=== PATIENT | male | born 1955 | race Caucasian/White ===

== ENCOUNTER 2017-09-17 08:07 | Inpatient (IN) | payer OTHER ==
[~2017-09-17] VITALS: Ht 172.7 cm; Wt 53.6 kg
--- NOTE | 2017-09-17 08:26 | ED HAND/WRIST INJURY COMPLAINT ---
See Addendum History of Present Illness General Chief Complaint: Hand or Wrist Injury Stated Complaint: SWOLLEN R HAND Source: patient Exam Limitations: no limitations Vital Signs & Intake/Output Vital Signs & Intake/Output Vital Signs Date Time Temp Pulse Resp B/P B/P Pulse O2 O2 Flow FiO2 Mean Ox Delivery Rate 09/17 0813 98.3 91 18 130/70 97 Allergies Coded Allergies: No Known Allergies (09/17/17) Triage Note: PT STATES HIS RIGHT HAND HAS BEEN SWOLLEN SINCE WEDNESDAY. PT STATES HE DOESNT REALY KNOW WHAT HAPPEND. Triage Nurses Notes Reviewed? yes Occurred: just prior to arrival Duration: day(s): (3), constant Pain/Injury Location: Right: Hand. No Modifying Factors: none HPI: 61-year-old male comes into emergency room with swelling to right hand. Patient is an employee here at [employer]. He reports that he's had swelling in the past 3 days pain. He thinks that he may have stabbed himself with a needle from the operating room this past Wednesday 3 days ago but is uncertain. He reports she's had swelling to the right hand with limited range of motion. Denies any fever chills body aches. Comes in for further evaluation. (Temo Schulz) Reconcile Medications Acetaminophen (Tylenol Extra Strength) 500 MG TABLET 2 TAB PO Q6 PRN pain . Bacitracin (Bacitracin Zinc) 500 UNIT/GRAM OINT...G. 1 NORMA TOP BID PRN cellulitis . Cephalexin 500 MG CAPSULE 500 MG PO Q6 INFECTION HAND . Cholecalciferol (Vitamin D3) 1,000 UNIT TABLET 1 TAB PO DAILY VITAMIN SUPPORT (Reported) Levothyroxine Sodium 100 MCG TABLET 1 TAB PO DAILY AC THYROID (Reported) (Olaf Jade DO) Past History Travel History Traveled to [place] past 21 day No Medical History Any Pertinent Medical History? see below for history Endocrine: hyperthyroidism Surgical History Surgical History: non-contributory Psychosocial History What is your primary language Citizen [place] Tobacco Use: Current Daily Use Daily Tobacco Use Amount/Type: => 5 Cigarettes daily ETOH Use: denies use Illicit Drug Use: denies illicit drug use Family History Hx Contributory? No (Temo Schulz) Review of Systems Review of Systems Constitutional: Reports: no symptoms. EENTM: Reports: no symptoms. Respiratory: Reports: no symptoms. Cardiovascular: Reports: no symptoms. GI: Reports: no symptoms. Genitourinary: Reports: no symptoms. Musculoskeletal: Reports: see HPI. Skin: Reports: see HPI. Neurological/Psychological: Reports: no symptoms. Hematologic/Endocrine: Reports: no symptoms. Immunologic/Allergic: Reports: no symptoms. All Other Systems: Reviewed and Negative (Temo Schulz) Physical Exam Physical Exam General Appearance: well developed/nourished, mild distress Head: atraumatic Eyes: Bilateral: normal appearance. Ears, Nose, Throat: normal ENT inspection, hearing grossly normal Neck: normal inspection Cardiovascular/Respiratory: no respiratory distress Back: normal inspection Hand Left: normal inspection Hand Right: swelling, tender, ERYTHEMA TO RIGHT HAND, LYMPHS DRINKING GOING UP ARM, RADIAL PULSE 2+, SOFT TISSUE SWELLING, LIMITED RANGE OF MOTION OF THE HAND, CAP REFILL INTACT,, SMALL AREA OF FLUCTUANCE IN HAND Neurologic/Tendon: normal sensation, normal motor functions, responds to pain, no evidence tendon injury, no pulse deficit Skin: intact, normal color, warm/dry (Temo Schulz) Progress Differential Diagnosis: abscess, cellulitis, contusion, fracture, septic arthritis, sprain Plan of Care: Orders Procedure Date/time Status Regular Diet 09/17 D Active ED Holding Orders 09/17 1103 Active Admit to inpatient 09/17 1103 Active Code Status 09/17 1103 Active BLOOD CULTURE 09/17 1023 Active EXTREMETIES CULTURE 09/17 1002 Active HIV EXPOSURE/NEEDLESTICK 09/17 0825 Complete HEPT C ANTIBODY 09/17 0825 Complete HEPT B SURFACE ANTIBODY 09/17 0825 Complete GAMMA GLUTAMYL TRANSFERASE 09/17 0825 Complete COMPREHENSIVE METABOLIC PANEL 09/17 0825 Complete CBC WITHOUT DIFFERENTIAL 09/17 0825 Complete TRNSFRASE ASPART AMINO 09/17 0825 Complete TRNSFRAS ALANINE AMINO 09/17 0825 Complete Current Medications Sig/Alexandre Start time Last Medication Dose Stop Time Status Admin Vancomycin HCl 1,000 MG ONCE ONE 09/17 1015 AC 09/17 Sodium Chloride 250 ML 09/17 1114 1050 (Normal Saline 0.9%) Laboratory Tests 09/17/17 0840: Anion Gap 10, Estimated GFR > 60, BUN/Creatinine Ratio 18.9, Glucose 120 H, Calcium 9.7, Total Bilirubin 1.0, GGT 38, AST 27, ALT 21, Alkaline Phosphatase 60, Total Protein 7.5, Albumin 4.3, Globulin 3.2, Albumin/Globulin Ratio 1.3, CBC w Diff NO MAN DIFF REQ, RBC 4.58 L, MCV 94.5 H, MCH 31.9 H, MCHC 33.8, RDW 14.4, MPV 7.7, Gran % 75.7 H, Lymphocytes % 13.1 L, Monocytes % 9.9 H, Eosinophils % 0.4, Basophils % 0.9, Absolute Granulocytes 8.7 H, Absolute Lymphocytes 1.5, Absolute Monocytes 1.1 H, Absolute Eosinophils 0, Absolute Basophils 0.1, Hep Bs Antibody REACTIVE, Hepatitis C Antibody NONREACTIVE, HIV 1 &2 Antibody NONREACTIVE Microbiology 09/17 1052 BLOOD: Blood Culture - RECD 09/17 1042 BLOOD: Blood Culture - RECD 09/17 1014 EXTREMITIE: Culture & Sensitivity - RECD 09/17 1014 EXTREMITIE: Gram Stain - RECD Diagnostic Imaging: Viewed by Me: Radiology Read. Discussed w/RAD: Radiology Read. Radiology Impression: PATIENT: MARTÍNEZ RANDLE PRESENT AGE: 61 PATIENT ACCOUNT NO: [id number] : 56 LOCATION: [facility] ORDERING PHYSICIAN: Temo FLOYD SERVICE DATE: 09/17/17 EXAM TYPE : RAD - XRY-HAND TWO VIEWS R EXAMINATION: XR HAND, RIGHT CLINICAL INFORMATION: Soft tissue foreign body, right hand swelling middle upon. May have stuck with needle at work. COMPARISON: None TECHNIQUE: 2 views of the right hand. FINDINGS: No radiodense foreign body is demonstrated. Soft tissue swelling about the hand. No acute fracture or dislocation. No periosteal reaction. The carpal arcs are maintained. Minimal hypertrophic changes involving DIP joints. IMPRESSION: Nonspecific soft tissue swelling about the hand. No radiodense foreign body demonstrated. DICTATED BY: Darrian Finn MD DATE/TIME DICTATED:09/17/17856 FIELD MECHANIC:WILIAM DATE/TIME TRANSCRIBED:09/17/17856 CONFIDENTIAL, DO NOT COPY WITHOUT APPROPRIATE AUTHORIZATION. <Electronically signed in Other Vendor System> SIGNED BY: Darrian Finn MD 09/17/17 09 (Temo Schulz) Departure Departure Disposition: STILL A PATIENT Condition: Stable Clinical Impression Primary Impression: Cellulitis and abscess of hand Referrals: Burke John DO (PCP/Family) Departure Forms: Customer Survey General Discharge Information Admission Note Spoke With: Levar Mota MD Documentation of Exam: Documentation of any treatments & extenuating circumstances including Concerns Regarding Discharge (functional status, medication knowledge or non-compliance, living conditions, etc.) that warrant an admission rather than observation: Patient will require IV antibiotics. Warm compresses. Repeat labs. Infectious disease consultation. Concern for compliance issues.Plastic surgery consultation. (Temo Schulz) Departure Prescriptions: Current Visit Scripts Cephalexin 500 MG PO Q6 #25 CAP . Acetaminophen (Tylenol Extra Strength) 2 TAB PO Q6 PRN pain #20 TAB . Bacitracin (Bacitracin Zinc) 1 NORMA TOP BID PRN cellulitis #1 TUBE . PA/FORENSIC ANTHROPOLOGIST Co-Sign Statement Statement: ED Attending supervision documentation- [X] I saw and evaluated the patient. I have also reviewed all the pertinent lab results and diagnostic results. I agree with the findings and the plan of care as documented in the PA's/FORENSIC ANTHROPOLOGIST's documentation. [] I have reviewed the ED Record and agree with the PA's/FORENSIC ANTHROPOLOGIST's documentation. [] Additions or exceptions (if any) to the PAs/FORENSIC ANTHROPOLOGIST's note and plan are summarized below: [] (Olaf Jade DO)
[2017-09-17 08:56] LABS: ABSOLUTE BASOPHIL COUNT 0.1 /CUMM (0.0-0.2); ABSOLUTE EOSINOPHIL COUNT 0 /CUMM (0.0-0.7); ABSOLUTE GRANULOCYTE CT 8.7 /CUMM (1.4-6.5); ABSOLUTE LYMPH COUNT 1.5 /CUMM (1.2-3.4); ABSOLUTE MONOCYTE COUNT 1.1 /CUMM (0.10-0.60); BASOPHIL % 0.9 % (0.0-2.0); EOSINOPHIL % 0.4 % (0-5); HEMATOCRIT 43.3 % (42-52); MEAN CORPUSCULAR HGB 31.9 PG (27.0-31.0); MEAN CORPUSCULAR HGB CONC 33.8 G/DL (33.0-37.0); MEAN CORPUSCULAR VOLUME 94.5 FL (80.0-94.0); MEAN PLATELET VOLUME 7.7 FL (7.4-10.4); PLATELET COUNT 207 /CUMM (130-400); RBC DISTRIBUTION WIDTH 14.4 % (11.5-14.5); RED BLOOD CELL CT 4.58 /CUMM (4.70-6.10); WHITE BLOOD CELL COUNT 11.5 /CUMM (4.8-10.8)
[2017-09-17 08:57] LABS: GRANULOCYTE % 75.7 % (42.2-75.2)
--- NOTE | 2017-09-17 09:02 | RADIOLOGY REPORT ---
EXAMINATION: XR HAND, RIGHT CLINICAL INFORMATION: Soft tissue foreign body, right hand swelling middle upon. May have stuck with needle at work. COMPARISON: None TECHNIQUE: 2 views of the right hand. FINDINGS: No radiodense foreign body is demonstrated. Soft tissue swelling about the hand. No acute fracture or dislocation. No periosteal reaction. The carpal arcs are maintained. Minimal hypertrophic changes involving DIP joints. IMPRESSION: Nonspecific soft tissue swelling about the hand. No radiodense foreign body demonstrated.
[2017-09-17] MEDS ORDERED: VITAMIN D31000 UNI2 PO (09:48)
[2017-09-17] MEDS ORDERED: LEVOTHYROXINE100 MC1 PO (09:48)
[2017-09-17] MEDS ORDERED: BACTRIM DS TAB1 EACH PO (10:04)
--- NOTE | 2017-09-17 11:26 | History & Physical ---
Corky BADILLO,[facility] 09/17/17 1121: General Information and HPI MD Statement: I have seen and personally examined MARTÍNEZ RODRÍGUEZ and documented this H&P. The patient is a 61 year old M who presented with a patient stated chief complaint of right hand injury. Source of Information: patient, friend Exam Limitations: poor historian History of Present Illness: Mr Rodríguez is a pleasant 61 year old gentleman with a past medical history of hypothyroidism who presented to the emergency department on 09/17/2017 complaining of a right hand injury. Patient is a poor historian and some of the clinical history was obtained from the patient's coworker. Patient developed right hand injury on Wednesday09/15/2017. The patient states that this injury was the result of one of 2 traumatic injuries although is unsure which may have caused his injury). He states that he may have been exposed to a sharp object from a plastic bag as he was removing items from the surgical suite or states that he may have encountered this injury as a result of accident which happened at his home involving a market risk specialist knife. At the time of our clinical interaction the patient appeared to be in mild distress and endorsde some right upper extremity pain. He denies any paresthesias or loss of sensation. At the time of presentation at the emergency department the wound on his right palmar aspect of his hand was incised and drained with approximately 4 mL of purulent material being aspirated and sent for culture. Patient does have a dog at home although still did not endorse any local bite or trauma. Patient's primary care physician is Dr. John although has not seen him for many years. He reports good medication compliance. He denied any fever, chills, nausea, vomiting. He was unable to articulate the level of pain was feeling although appeared to be in some distress. Allergies/Medications Allergies: Coded Allergies: No Known Allergies (09/17/17) Home Med list Cholecalciferol (Vitamin D3) 1,000 UNIT TABLET 1 TAB PO DAILY VITAMIN SUPPORT (Reported) Levothyroxine Sodium 100 MCG TABLET 1 TAB PO DAILY AC THYROID (Reported) Sulfamethoxazole/Trimethoprim (Bactrim Ds Tablet) 800 MG-160 MG TABLET 1 TAB PO BID cellulitis/abscess Compliance With Home Meds: UNKNOWN Past History Travel History Traveled to [place] past 21 day No Medical History Endocrine: hyperthyroidism Surgical History Surgical History: non-contributory Past Family/Social History Psychosocial History Where do you live? Other ([place] ) Who Do You Live With? spouse Services at Home: None Primary Language: Greek Smoking Status: Current Some Day Smoker ETOH Use: denies use Illicit Drug Use: denies illicit drug use Functional Ability ADLs Independent: dressing, eating, toileting, bathing. Ambulation: independent IADLs Independent: shopping, housework, finances, food prep, telephone, transportation , medication admin. Review of Systems Review of Systems Constitutional: Reports: see HPI. Exam & Diagnostic Data Last 24 Hrs of Vital Signs/I&O Vital Signs Date Time Temp Pulse Resp B/P B/P Pulse O2 O2 Flow FiO2 Mean Ox Delivery Rate 09/17 0813 98.3 91 18 130/70 97 Intake & Output 09/17 1600 09/17 0800 09/17 0000 Intake Total Output Total Balance Patient 52.163 kg Weight Weight Reported by Patient Measurement Method Physical Exam General Appearance Alert, Oriented X3, Mild Distress HEENT Mucous membranes Dry Lungs Clear to Auscultation, Normal Air Movement Abdomen Normal Bowel Sounds, Soft, No Tenderness Neurological Sensation Intact, Cranial Nerves 3-12 NL Extremities No Clubbing (Right palmar aspect s/p I & D.), No Cyanosis, Erythema extending up to the wrist. Significan swelling noted. Range of motion decreased. All sensation intact. Pulses WNL Vascular Normal Pulses Body Front and Back (Adult) 1) S/p I&D Significan erythema and edema noted to the level of the wrists. 2 Cm laceration noted on Palmar aspect. Last 24 Hrs of Labs/Ihsan: Laboratory Tests 09/17/17 0840: Anion Gap 10, Estimated GFR > 60, BUN/Creatinine Ratio 18.9, Glucose 120 H, Hemoglobin A1c 6.0 H, Calcium 9.7, Total Bilirubin 1.0, GGT 38, AST 27, ALT 21, Alkaline Phosphatase 60, Total Protein 7.5, Albumin 4.3, Globulin 3.2, Albumin/ Globulin Ratio 1.3, CBC w Diff NO MAN DIFF REQ, RBC 4.58 L, MCV 94.5 H, MCH 31.9 H, MCHC 33.8, RDW 14.4, MPV 7.7, Gran % 75.7 H, Lymphocytes % 13.1 L, Monocytes % 9.9 H, Eosinophils % 0.4, Basophils % 0.9, Absolute Granulocytes 8.7 H, Absolute Lymphocytes 1.5, Absolute Monocytes 1.1 H, Absolute Eosinophils 0, Absolute Basophils 0.1, Hep Bs Antibody REACTIVE, Hepatitis C Antibody NONREACTIVE, HIV 1&2 Antibody NONREACTIVE Microbiology 09/17 1052 BLOOD: Blood Culture - RECD 09/17 1042 BLOOD: Blood Culture - RECD 09/17 1014 EXTREMITIE: Culture & Sensitivity - RECD 09/17 1014 EXTREMITIE: Gram Stain - RECD Diagnostic Data Other Results SERVICE DATE: 09/17/17 EXAM TYPE: RAD - XRY-HAND TWO VIEWS R EXAMINATION: XR HAND, RIGHT CLINICAL INFORMATION: Soft tissue foreign body, right hand swelling middle upon. May have stuck with needle at work. COMPARISON: None TECHNIQUE: 2 views of the right hand. FINDINGS: No radiodense foreign body is demonstrated. Soft tissue swelling about the hand. No acute fracture or dislocation. No periosteal reaction. The carpal arcs are maintained. Minimal hypertrophic changes involving DIP joints. IMPRESSION: Nonspecific soft tissue swelling about the hand. No radiodense foreign body demonstrated. Assessment/Plan Assessment: Mr Rodríguez is a pleasant 61 year old gentleman with a past medical history of hypothyroidism who presented to the emergency department on 09/17/2017 complaining of a right hand injury. In the emergency department blood cultures 2 were drawn and the patient was given IV vancomycin 1 g. An x-ray of the hand was also performed. His injury is concerning especially given its location. Owing to the presence of purulent material will need to cover for MRSA.Given the fact that the injury may have happened as a result of a workplace injury would be prudent to rule out hepatitis and HIV. Cellulitis of the right upper extremity History of Hypothyroidism Will admit the patient to the Gen. medical service. Continue antibiotic with MRSA coverage. Continue vancomycin for now. MRI of right hand to rule out an abcess/ acute pathology. If patient's symptoms improve in 48 hours, may consider Bactrim or doxycycline once sensitivities are back. Follow-up on wound cultures. Obtain formal infectious disease and plastics consultation. Elevate arm and apply warm compresses. Query Tetanus booster. Pain control with Percocet, IV Acetaminophen and NSAIDs Continue levothyroxine in a.m. Smoking cessation counseling. Repeat CBC and BEP in a.m. Regular diet. DVT prophylaxis with Lovenox. Patient is a full code. As Ranked By This Provider Problem List: 1. Cellulitis and abscess of hand Core Measures/Misc (12/06) Sepsis (View protocol) If YES complete Sepsis Event Note If YES complete Sepsis Event Note Braeden Reyes MD 09/17/17 1524: Core Measures/Misc (12/06) Acute Coronary Syndrome ACS Diagnosis: No Congestive Heart Failure Congestive Heart Failure Diagnosis No Cerebrovascular Accident CVA/TIA Diagnosis: No VTE (View Protocol) VTE Risk Factors Age>40 No Mechanical VTE Prophylaxis d/t N/A MechProphylax Ordered No VTE Pharm Prophylaxis d/t LowRisk-No Interven Req'd Sepsis (View protocol) Sepsis Present: No If YES complete Sepsis Event Note If YES complete Sepsis Event Note Attending MD Review Statement Attending Statement Attending MD Statement: examined this patient, discuss w/resident/PA/COMMUNICATIONS MANAGER, agreed w/resident/PA/COMMUNICATIONS MANAGER, reviewed EMR data (avail), reviewed images, amended to note Attending Assessment/Plan: The patient is a 61 yo male with 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 He is vague about having an injury, although may have cut the palm of the hand on a sharp object when picking trash out of a container (of could have happened at home). He denied any fever/chills. Today noted some spread of infection up forearm and a co-worker brought him the the ED. His grain processor is Dr. John. [place] chart indicates only problem is hypothyroidism (sees Dr. Tristan) since 2008. He has a low-normal IQ as per Endocrinology chart. Physical Exam: VS: T 98.3, P 91, R 18, BP 130/70, PO 97% RA HEENT: eyes- PERRLA, EOMI debra- no lesions Neck: no adenopathy, thyroid slightly spongy Chest: clear Cor: RRR nl S1, S2 w/o murm Abd: BS+, soft, NT, - HSM Ext: + diffuse edema of right hand- has small incision in mid right palm (ED did I&D with purulent drainage), + tender and warm with some extension up right forearm, - no axillary nodes palpable; LE w/o edema, pulses 2+ Neuro: alert & oriented x 3, non-focal exam Labs/Tests- as above Impression/Plan: #Right Hand Cellulitis- purulent. 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 He is a vague historian and has had symptoms x 2 days. Concern regarding MSSA, strep, MRSA with some purulent drainage. I & D done in ED. Does have leukocytosis with WBC 15K. Plan: Admit to general medical service. Garvey culture- blood, sample sent from ED. IV Vancomycin begun in ED. ID consult. Plastic surgery consult. MRI of right hand. Elevate RUE. Check hepatitis panel and HIV (concern regarding hospital sharps). 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 Clinically euthyroid on Levothyroxine. Plan: Continue Levothyroxine.
--- NOTE | 2017-09-17 14:49 | Cons- Infect Disease ---
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 On admission he was afebrile. Laboratory data revealed a white blood cell count of 11.5, BUN/ creatinine 17 and 0.9, with normal liver enzymes. An x-ray of his right hand revealed soft tissue swelling with no periosteal reaction and with no radiodense foreign body noted. He underwent an I&D of a fluctuant area in the palm in the ER, with 4 cc of purulent material obtained. He was begun on Vancomycin and has undergone an MRI, with the results pending. At present he does not report any significant pain in the hand. Allergies/Medications Allergies: Coded Allergies: No Known Allergies (09/17/17) Home Med List: Cholecalciferol (Vitamin D3) 1,000 UNIT TABLET 1 TAB PO DAILY VITAMIN SUPPORT (Reported) Levothyroxine Sodium 100 MCG TABLET 1 TAB PO DAILY AC THYROID (Reported) Sulfamethoxazole/Trimethoprim (Bactrim Ds Tablet) 800 MG-160 MG TABLET 1 TAB PO BID cellulitis/abscess Past History Travel History Traveled to [place] past 21 day No Medical History Blood Transfusion Hx: No Neurological: NONE EENT: NONE Cardiovascular: NONE Respiratory: NONE Gastrointestinal: NONE Hepatic: NONE Renal: NONE Musculoskeletal: NONE Psychiatric: NONE Endocrine: hypothyroidism Blood Disorders: NONE Cancer(s): NONE Isolation History: Standard Surgical History Surgical History: NONE Psychosocial History Where Do You Live? Home ([place] ) Who Do You Live With? spouse Services at Home: None Primary Language: Yemeni Smoking Status: Current Some Day Smoker ETOH Use: denies use Illicit Drug Use: denies illicit drug use Functional Ability ADLs Independent: dressing, eating, toileting, bathing. Ambulation: independent IADLs Independent: shopping, housework, finances, food prep, telephone, transportation , medication admin. Review of Systems Review of Systems All Other Systems: Reviewed and Negative Exam & Diagnostic Data Last 24 Hrs of Vital Signs/I&O Vital Signs Date Time Temp Pulse Resp B/P B/P Pulse O2 O2 Flow FiO2 Mean Ox Delivery Rate 09/17 1205 98.3 95 18 156/82 96 Room Air Room Air 09/17 1155 98.3 09/17 0813 98.3 91 18 130/70 97 Intake & Output 09/17 1600 09/17 0800 09/17 0000 Intake Total 500 Output Total Balance 500 Intake, Oral 500 Patient 115 lb Weight Weight Reported by Patient Measurement Method Physical Exam Other Physical Findings: He is awake and alert in no acute distress. He is afebrile. Skin reveals no rash. HEENT exam is negative. Neck is supple with no adenopathy. Lungs are clear. Heart regular rhythm with no murmur. Abdomen is soft, nontender with positive bowel sounds. Back no CVA tenderness. Extremities right hand swelling over the dorsum and plantar aspects, warm to touch, with minimal erythema; wound in the plantar aspect, mildly tender on palpation, with no active drainage; no cyanosis, clubbing or edema of the lower extremities. Neuro is without focality. Last 24 Hours of Lab Results: Laboratory Tests 09/17 0840 Chemistry Sodium (137 - 145 mmol/L) 140 Potassium (3.5 - 5.1 mmol/L) 4.4 Chloride (98 - 107 mmol/L) 103 Carbon Dioxide (22 - 30 mmol/L) 27 Anion Gap (5 - 16) 10 BUN (9 - 20 mg/dL) 17 Creatinine (0.7 - 1.2 mg/dL) 0.9 Estimated GFR (>60 ml/min) > 60 BUN/Creatinine Ratio (7 - 25 %) 18.9 Glucose (65 - 99 mg/dL) 120 H Hemoglobin A1c (4.2 - 5.8 %) 6.0 H Calcium (8.4 - 10.2 mg/dL) 9.7 Total Bilirubin (0.2 - 1.3 mg/dL) 1.0 GGT (15 - 73 U/L) 38 AST (17 - 59 U/L) 27 ALT (21 - 72 U/L) 21 Alkaline Phosphatase (< 127 U/L) 60 Total Protein (6.3 - 8.2 g/dL) 7.5 Albumin (3.5 - 5.0 g/dL) 4.3 Globulin (1.9 - 4.2 gm/dL) 3.2 Albumin/Globulin Ratio (1.1 - 2.2 %) 1.3 Hematology CBC w Diff NO MAN DIFF REQ WBC (4.8 - 10.8 /CUMM) 11.5 H RBC (4.70 - 6.10 /CUMM) 4.58 L Hgb (14.0 - 18.0 G/DL) 14.6 Hct (42 - 52 %) 43.3 MCV (80.0 - 94.0 FL) 94.5 H MCH (27.0 - 31.0 PG) 31.9 H MCHC (33.0 - 37.0 G/DL) 33.8 RDW (11.5 - 14.5 %) 14.4 Plt Count (130 - 400 /CUMM) 207 MPV (7.4 - 10.4 FL) 7.7 Gran % (42.2 - 75.2 %) 75.7 H Lymphocytes % (20.5 - 51.1 %) 13.1 L Monocytes % (1.7 - 9.3 %) 9.9 H Eosinophils % (0 - 5 %) 0.4 Basophils % (0.0 - 2.0 %) 0.9 Absolute Granulocytes (1.4 - 6.5 /CUMM) 8.7 H Absolute Lymphocytes (1.2 - 3.4 /CUMM) 1.5 Absolute Monocytes (0.10 - 0.60 /CUMM) 1.1 H Absolute Eosinophils (0.0 - 0.7 /CUMM) 0 Absolute Basophils (0.0 - 0.2 /CUMM) 0.1 Serology Hep Bs Antibody (NONREACTIVE) REACTIVE Hepatitis C Antibody (NONREACTIVE) NONREACTIVE HIV 1&2 Antibody (NONREACTIVE) NONREACTIVE Last 24 Hours of Ihsan Results: Blood cultures 2 pending Right hand culture pending Diagnostic Data Recent Imaging Findings: X-ray of his right hand revealed soft tissue swelling with no periosteal reaction and with no radiodense foreign body noted. 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 He appears to have a purulent cellulitis of the volar aspect of the right hand. The etiology of this is unclear, with no definite history of trauma. The extent of this infection is unclear and he has undergone an MRI, which should help in determining this. Plastic/hand surgery evaluation would also be helpful to rule out the need for further drainage/debridement. He has been started on Vancomycin, which can be continued pending culture results. Suggestion: 1. Follow-up MRI 2. Plastic/hand surgery evaluation 3. Elevation/warm compresses to the right hand 4. Follow-up culture from the recent I&D 5. Continue Vancomycin 1 g IV every 24 hour pending above Consult Acknowledgment - Thank you for your consult request.
[2017-09-17 14:50] VITALS: BP 130/82
--- NOTE | 2017-09-17 14:53 | Cons- Plastic Surgery ---
General Information and HPI Consulting Request Date of Consult: 09/17/17 Requested By: Braeden Reyes MD Reason for Consult: abscess right hand Source of Information: patient (er) Exam Limitations: poor historian History of Present Illness: Patient is right hand dominant male who was unsure of an acute injury a few days ago but noticed the onset of pain and swelling of the right palm. Attendant took him to the emergency room for evaluation. He complains of discomfort in the right hand. He was found to be afebrile with a white count of 11,000 upon admission. 4 mL of purulent drainage was reportedly drained in the emergency room. Allergies/Medications Allergies: Coded Allergies: No Known Allergies (09/17/17) Home Med List: Cholecalciferol (Vitamin D3) 1,000 UNIT TABLET 1 TAB PO DAILY VITAMIN SUPPORT (Reported) Levothyroxine Sodium 100 MCG TABLET 1 TAB PO DAILY AC THYROID (Reported) Sulfamethoxazole/Trimethoprim (Bactrim Ds Tablet) 800 MG-160 MG TABLET 1 TAB PO BID cellulitis/abscess Past History Medical History Blood Transfusion Hx: No Neurological: NONE EENT: NONE Cardiovascular: NONE Respiratory: NONE Gastrointestinal: NONE Hepatic: NONE Renal: NONE Musculoskeletal: NONE Psychiatric: NONE Endocrine: hypothyroidism Blood Disorders: NONE Cancer(s): NONE Surgical History Pertinent Surgical History: NONE Psychosocial History Where Do You Live? Home ([place] ) Who Do You Live With? spouse Services at Home: None Primary Language: Czech Smoking Status: Current Some Day Smoker ETOH Use: denies use Illicit Drug Use: denies illicit drug use Functional Ability ADLs Independent: dressing, eating, toileting, bathing. Ambulation: independent IADLs Independent: shopping, housework, finances, food prep, telephone, transportation , medication admin. Review of Systems Review of Systems: All other systems negative Exam & Diagnostic Data Vital Signs and I&O Vital Signs Date Time Temp Pulse Resp B/P B/P Pulse O2 O2 Flow FiO2 Mean Ox Delivery Rate 09/17 1205 98.3 95 18 156/82 96 Room Air Room Air 09/17 1155 98.3 09/17 0813 98.3 91 18 130/70 97 Intake & Output 09/17 1600 09/17 0800 09/17 0000 09/16 1600 09/16 0800 09/16 0000 Intake Total 500 Output Total Balance 500 Intake, Oral 500 Patient 115 lb Weight Weight Reported by Patient Measurement Method Physical Exam: Right hand shows flexed position of the fingers but soft. There is an opened longitudinal full thickness incision in the mid palm without surrounding cellulitis or active drainage. Dorsum has some mild edema without fluctuance nor cellulitis. no significant lymphangitic streaking. no Pain with passive extension of digits. Assessment/Plan Assessment/Plan Abscess right hand status post drainage. Continue antibiotics until culture report is returned. soap and water on a daily or twice daily basis covering the wound with gauze pad and bacitracin. Consider an OT PT eval for extension splinting of the hand or safe position splinting of the hand. In the interim and it might be sufficient is to loosely Abiodun wrap the patient's hand and digits to an IV board to be In extension ie, fingers straight with palm, "stop" position. This is to prevent flexion contracture since he is holding his fingers in a flexed posture. Consult Acknowledgment - Thank you for your consult request.
--- NOTE | 2017-09-17 15:42 | PN- Plastic Surgery ---
Surgical Brief Attending Note Brief Attending Note: aspirated dorsal 3rd mcp region based on question of collection on mri. negative for purulence.
--- NOTE | 2017-09-17 16:06 | MRI REPORT ---
EXAMINATION: MRI HAND WITHOUT/WITH CONTRAST, RIGHT CLINICAL INFORMATION: 61-year-old male with purulent drainage. Treated for cellulitis. Recent hand trauma/puncture wound. COMPARISON: Radiographs of the hand from 09/17/2017 TECHNIQUE: MR imaging of the right hand was performed on a high-field 1.5 Lenore magnet. Multiplanar T1-weighted, coronal STIR, coronal T2-weighted, axial fat-suppressed VIBE, and postcontrast fat-suppressed axial T1-weighted spin-echo and VIBE images were obtained. Contrast type and dose: 5 mL of Gadavist given intravenously. FINDINGS: Diffuse edema of subcutaneous tissues of the hand. There is a reticulated appearance of subcutaneous tissue enhancement after contrast administration, consistent with cellulitis. An irregular nonenhancing area within subcutaneous tissues volar to the flexor tendons at the level of the distal 2nd and 3rd metacarpals measures 1.4 cm transverse, 1.4 cm long and 0.8 cm AP; this is consistent with a superficial abscess, status post drainage, as manifest by thin focus of extension to the skin surface. On the axial postcontrast images, a 0.9 x 0.7 x 2 cm area of relative hypoenhancement is seen in subcutaneous tissues dorsal to the third metacarpophalangeal joint -- possibly another location of early abscess formation; however, there is no well-defined walled off fluid. Recommend correlation with findings on physical examination dorsal to the third knuckle. Flexor and extensor tendons are intact. There are no tenosynovial fluid collections. No intramuscular abscess. The triangular fibrocartilage complex, lunatotriquetral ligament and scapholunate ligament are grossly intact. There is a type 2 lunate with apparent articular cartilage loss and subarticular marrow edema at the hamatolunate articulation. Mild osteoarthrosis of the first carpometacarpal joint. Minimal subcortical cystic change in the posteromedial aspect of the 5th metacarpal head. No evidence of osseous erosion or synovitis at the MCP or IP joints. No osteomyelitis. IMPRESSION: - Diffuse cellulitis of the right hand. - Irregular, 1.4 x 1.4 x 0.8 cm peripherally enhancing focus in subcutaneous tissues of the palm extending to the skin surface is compatible with a draining superficial abscess. - At the 3rd knuckle, there is a region of relative hypoenhancement which could represent early abscess formation. However, no discrete, walled off collection in this area. Recommend correlation with the physical examination findings. - No evidence of osteomyelitis in the hand or wrist.
--- NOTE | 2017-09-17 16:15 | Admission Certification ---
Admission Certification Certification Statement - As attending physician, I certify that at the time of - admission, based on clinical presentation, severity of - symptoms, need for further diagnostic testing and - therapeutic interventions, and risk of adverse outcomes - without in-hospital treatment, in my clinical assessment, - this patient requires an acute hospital stay for a minimum - of two nights or longer. I have also considered psychsocial - factors such as support system, advanced age, financial - issues, cognitive issues, and failed out-patient treatments, - past re-admission history, safety of patient, and lack of - compliance as applicable. Specific rationale supporting this admission is: Patient presents with right hand cellulitis with lymphangitic spread after ? sharp injury to palm of hand. Has leukocytosis and signfiicant swelling. Needs admission for IV antibiotics (Vanco), ID consult, MRI of hand, and Plastic Surgery consult.
[2017-09-17 22:19] VITALS: BP 112/60
--- NOTE | 2017-09-18 04:07 | PN- Housestaff ---
See Addendum Subjective Follow-up For: Cellulitis of the right extremity. Subjective: Mr Rodríguez was seen and examined this morning. He is resting comfortably in bed. States that he was able to get some rest. States pain in right upper extremity has improved. He also states hand appears less swollen. He has been tolerating by mouth intake well. Denies any fever, chills, nausea, vomiting. Review of Systems Constitutional: Reports: see HPI. Objective Last 24 Hrs of Vital Signs/I&O Vital Signs Date Time Temp Pulse Resp B/P B/P Pulse O2 O2 Flow FiO2 Mean Ox Delivery Rate 09/18 0627 98.0 82 16 114/70 97 Room Air 09/17 2219 98.7 85 20 112/60 96 Room Air 09/17 1450 97.7 79 20 130/82 96 Room Air 09/17 1205 98.3 95 18 156/82 96 Room Air Room Air 09/17 1155 98.3 Intake & Output 09/18 1600 09/18 0800 09/18 0000 Intake Total 360 360 Output Total Balance 360 360 Intake, Oral 360 360 Patient 53.581 kg Weight Weight Bed scale Measurement Method Physical Exam General Appearance: Alert, Oriented X3, Cooperative Cardiovascular: Regular Rate, Normal S1, Normal S2 Lungs: Clear to Auscultation Abdomen: Normal Bowel Sounds, Soft, No Tenderness Neurological: Normal Speech, Sensation Intact, Cranial Nerves 3-12 NL Extremities: Hand wrapped in Gauze and Abiodun. Right hand swelling and erythema noted, improved compared to admission. No active drainage from laceration. Hand is warm to touch with pulses present. 3rd MCP region has hemostasis at site or bedside aspiration. Orders Miscellaneous Findings: EXAM TYPE: MRI - MRI-RT HAND W/O & W IVONNE IMPRESSION: - Diffuse cellulitis of the right hand. - Irregular, 1.4 x 1.4 x 0.8 cm peripherally enhancing focus in subcutaneous tissues of the palm extending to the skin surface is compatible with a draining superficial abscess. - At the 3rd knuckle, there is a region of relative hypoenhancement which could represent early abscess formation. However, no discrete, walled off collection in this area. Recommend correlation with the physical examination findings. - No evidence of osteomyelitis in the hand or wrist. Assessment/Plan Assessment: Mr Rodríguez is a pleasant 61 year old gentleman with a past medical history of hypothyroidism who presented to the emergency department on 09/17/2017 complaining of a right hand injury. In the emergency department blood cultures 2 were drawn and the patient was given IV vancomycin 1 g. An x-ray of the hand was also performed. His injury is concerning especially given its location. Owing to the presence of purulent material will need to cover for MRSA.Given the fact that the injury may have happened as a result of a workplace injury would be prudent to rule out hepatitis and HIV. An MRI was done on 09/17/2017 showed no evidence of osteomyelitis however did suggest a potential superficial abscess on the subcutaneous tissue of the palm. #Cellulitis of the right upper extremity #History of Hypothyroidism Continue on the Gen. medical service. Continue vancomycin for now. Follow-up on wound cultures. If patient's symptoms improve in 48 hours, may consider Bactrim or doxycycline once sensitivities are back. ID and plastics on board. Elevate arm and apply warm compresses. Query Tetanus booster. Pain control with Percocet, IV Acetaminophen and NSAIDs Continue levothyroxine in a.m. Smoking cessation counseling. Repeat CBC in a.m. Regular diet. DVT prophylaxis with Lovenox. Patient is a full code. Problem List: 1. Cellulitis and abscess of hand Pain Ratin Pain Location: Right hand Pain Goal: Remain pain free Pain Plan: Tylenol and percocet Tomorrow's Labs & Rationales: CBC: Monitor White count
[2017-09-18 06:27] VITALS: BP 114/70
[2017-09-18 08:56] LABS: ABSOLUTE BASOPHIL COUNT 0 /CUMM (0.0-0.2); ABSOLUTE EOSINOPHIL COUNT 0.2 /CUMM (0.0-0.7); ABSOLUTE GRANULOCYTE CT 5.2 /CUMM (1.4-6.5); ABSOLUTE MONOCYTE COUNT 0.9 /CUMM (0.10-0.60); BASOPHIL % 0.5 % (0.0-2.0); EOSINOPHIL % 2.7 % (0-5); GRANULOCYTE % 61.6 % (42.2-75.2); HEMATOCRIT 43.2 % (42-52); MEAN CORPUSCULAR HGB 31.5 PG (27.0-31.0); MEAN CORPUSCULAR HGB CONC 33.2 G/DL (33.0-37.0); MEAN CORPUSCULAR VOLUME 94.8 FL (80.0-94.0); MEAN PLATELET VOLUME 8.1 FL (7.4-10.4); RBC DISTRIBUTION WIDTH 14.5 % (11.5-14.5); RED BLOOD CELL CT 4.55 /CUMM (4.70-6.10); WHITE BLOOD CELL COUNT 8.4 /CUMM (4.8-10.8)
--- NOTE | 2017-09-18 12:57 | PN- Infect Dx ---
Subjective Subjective: This patient is a 61-year-old man with a history of hypothyroidism, admitted after he was sent to the emergency room because of a 2 day history of right hand pain and swelling, associated with chills, with no clear history of trauma. He underwent an I&D of a fluctuant area in the palm in the ER, with 4 cc of purulent material obtained. He was begun on Vancomycin and has undergone an MRI , which demonstrated Diffuse cellulitis of the right hand, Irregular, 1.4 x 1.4 x 0.8 cm peripherally enhancing focus in subcutaneous tissues of the palm extending to the skin surface is compatible with a draining superficial abscess. No evidence of osteomyelitis in the hand or wrist. Currently he feels well with no fever or elevated white blood cell count. Review of Systems Comments: 12 point review of systems as documented above Objective Last 24 Hrs of Vital Signs/I&O Vital Signs Date Time Temp Pulse Resp B/P B/P Pulse O2 O2 Flow FiO2 Mean Ox Delivery Rate 09/18 0627 98.0 82 16 114/70 97 Room Air 09/17 2219 98.7 85 20 112/60 96 Room Air 09/17 1450 97.7 79 20 130/82 96 Room Air Intake & Output 09/18 1600 09/18 0800 09/18 0000 Intake Total 360 360 Output Total Balance 360 360 Intake, Oral 360 360 Patient 118 lb Weight Weight Bed scale Measurement Method Physical Exam Other Physical Findings: Awake alert oriented 3 baseline behavior Neck supple no JVD lymphadenopathy Lungs are clear to auscultation bilaterally Heart is regular rate and rhythm S1-S2 Abdomen is soft nontender nondistended Distal extremities show no edema Right hand and wrist clean dry and wrapped. Results Last 24 Hours of Lab Results: Laboratory Tests 09/18 0724 Chemistry Sodium (137 - 145 mmol/L) 139 Potassium (3.5 - 5.1 mmol/L) 4.3 Chloride (98 - 107 mmol/L) 107 Carbon Dioxide (22 - 30 mmol/L) 23 Anion Gap (5 - 16) 9 BUN (9 - 20 mg/dL) 11 Creatinine (0.7 - 1.2 mg/dL) 0.7 Estimated GFR (>60 ml/min) > 60 BUN/Creatinine Ratio (7 - 25 %) 15.7 Hematology CBC w Diff NO MAN DIFF REQ WBC (4.8 - 10.8 /CUMM) 8.4 RBC (4.70 - 6.10 /CUMM) 4.55 L Hgb (14.0 - 18.0 G/DL) 14.3 Hct (42 - 52 %) 43.2 MCV (80.0 - 94.0 FL) 94.8 H MCH (27.0 - 31.0 PG) 31.5 H MCHC (33.0 - 37.0 G/DL) 33.2 RDW (11.5 - 14.5 %) 14.5 Plt Count (130 - 400 /CUMM) MPV (7.4 - 10.4 FL) 8.1 Gran % (42.2 - 75.2 %) 61.6 Lymphocytes % (20.5 - 51.1 %) 24.3 Monocytes % (1.7 - 9.3 %) 10.9 H Eosinophils % (0 - 5 %) 2.7 Basophils % (0.0 - 2.0 %) 0.5 Absolute Granulocytes (1.4 - 6.5 /CUMM) 5.2 Absolute Lymphocytes (1.2 - 3.4 /CUMM) 2.0 Absolute Monocytes (0.10 - 0.60 /CUMM) 0.9 H Absolute Eosinophils (0.0 - 0.7 /CUMM) 0.2 Absolute Basophils (0.0 - 0.2 /CUMM) 0 Last 24 Hours of Ihsan Results: Microbiology Date/Time Procedure - Status Source Growth 09/17 1052 Blood Culture - RES BLOOD 09/17 1042 Blood Culture - RES BLOOD 09/17 1014 Culture & Sensitivity - RES EXTREMITIE STAPH AUREUS 09/17 1014 Gram Stain - RES EXTREMITIE Recent Imaging Studies: No recent studies Assessment/Plan ID Impression: This is a 61-year-old man with purulent cellulitis of the volar aspect of the right hand. The etiology of this is unclear, with no definite history of trauma. The does not appear to have osteomyelitis. Appreciate plastic input. He has been started on Vancomycin, which should be continued considering cultures are currently growing staph aureus. Suggestion: 1. Elevation/warm compresses to the right hand 2. Follow-up culture from the recent I&D 3. Continue Vancomycin 1 g IV every 24 hour pending sensitivities
[2017-09-18 15:28] VITALS: BP 114/68
[2017-09-18 22:10] VITALS: BP 118/60
[2017-09-19 07:35] VITALS: BP 98/60
[2017-09-19 11:15] LABS: ABSOLUTE BASOPHIL COUNT 0 /CUMM (0.0-0.2); ABSOLUTE EOSINOPHIL COUNT 0.3 /CUMM (0.0-0.7); ABSOLUTE GRANULOCYTE CT 3.5 /CUMM (1.4-6.5); ABSOLUTE LYMPH COUNT 1.7 /CUMM (1.2-3.4); ABSOLUTE MONOCYTE COUNT 0.7 /CUMM (0.10-0.60); BASOPHIL % 0.8 % (0.0-2.0); EOSINOPHIL % 4.3 % (0-5); GRANULOCYTE % 56.6 % (42.2-75.2); HEMATOCRIT 42.5 % (42-52); PLATELET COUNT 214 /CUMM (130-400); RED BLOOD CELL CT 4.52 /CUMM (4.70-6.10); WHITE BLOOD CELL COUNT 6.3 /CUMM (4.8-10.8)
--- NOTE | 2017-09-19 11:22 | PN- Infect Dx ---
Subjective Subjective: This patient is a 61-year-old man with diffuse cellulitis of the right hand. No evidence of osteomyelitis in the hand or wrist. Currently he feels well with no fever or elevated white blood cell count. Cultures are growing methicillin sensitive staph aureus. Review of Systems Comments: 12 point review negative Objective Last 24 Hrs of Vital Signs/I&O Vital Signs Date Time Temp Pulse Resp B/P B/P Pulse O2 O2 Flow FiO2 Mean Ox Delivery Rate 09/19 0735 97.6 72 16 98/60 97 Room Air 09/18 2210 97.9 75 19 118/60 96 Room Air 09/18 1528 98.0 87 20 114/68 97 Intake & Output 09/19 1600 09/19 0800 09/19 0000 Intake Total 350 330 Output Total Balance 350 330 Intake, IV 10 Intake, Oral 350 320 Physical Exam Other Physical Findings: Awake alert oriented 3 baseline mentation Neck supple no JVD or lymphadenopathy Lungs are clear to auscultation Heart regular rate and rhythm S1-S2 Abdomen soft nontender nondistended Right hand wrapped dressed no erythema or warmth No neurologic dysfunction Results Last 24 Hours of Lab Results: Laboratory Tests 09/19 0910 Hematology CBC w Diff Pending WBC Pending RBC Pending Hgb Pending Hct Pending MCV Pending MCH Pending MCHC Pending RDW Pending Plt Count Pending MPV Pending Last 24 Hours of Ihsan Results: Microbiology Date/Time Procedure - Status Source Growth 09/17 1052 Blood Culture - RES BLOOD 09/17 1042 Blood Culture - RES BLOOD 09/17 1014 Culture & Sensitivity - COMP EXTREMITIE STAPH AUREUS 09/17 1014 Gram Stain - COMP EXTREMITIE 1. STAPH AUREUS RX AB ------ -- CEFAZOLIN S AMOXICILLIN/CLAVULINIC ACID S AMPICILLIN/SULBACTAM S TETRACYCLINE S TRIMETHOPRIM/SULFAMETHOXAZOLE S AZITHROMYCIN S CLINDAMYCIN S ERYTHROMYCIN S OXACILLIN S VANCOMYCIN S Recent Imaging Studies: No new studies Assessment/Plan ID Impression: This patient is a 61-year-old man with purulent cellulitis of the volar aspect of the right hand. He does not appear to have osteomyelitis. He has been started on Vancomycin which can be switched to Keflex and preparation for discharge. Suggestion: 1. Keep elevated follow-up with plastic surgery 2. Switch vancomycin to Keflex for 7-10 day course 3. Okay to discharge from an ID standpoint
--- NOTE | 2017-09-19 12:04 | PN- Att Addend ---
Attending Addendum Attending Brief Note Patient seen and examined, denies any complaints. The hand is wrapped in a splint as well as dressing and Abiodun wrap. Patient remains afebrile. WBC count remains normal. Culture grew MSSA. Vital Signs Date Time Temp Pulse Resp B/P B/P Pulse O2 O2 Flow FiO2 Mean Ox Delivery Rate 09/19 0735 97.6 72 16 98/60 97 Room Air 09/18 2210 97.9 75 19 118/60 96 Room Air 09/18 1528 98.0 87 20 114/68 97 On exam; aox3, nad. cv; s1, s2, rrr resp; clear abd; soft, nt, bs+ ext; no edema skin: + splint and abiodun wrap on right hand. S/P aspiration with Plastic surgery. Laboratory Tests 09/19 09 Hematology CBC w Diff NO MAN DIFF REQ WBC (4.8 - 10.8 /CUMM) 6.3 RBC (4.70 - 6.10 /CUMM) 4.52 L Hgb (14.0 - 18.0 G/DL) 14.5 Hct (42 - 52 %) 42.5 MCV (80.0 - 94.0 FL) 94.0 MCH (27.0 - 31.0 PG) 32.0 H MCHC (33.0 - 37.0 G/DL) 34.0 RDW (11.5 - 14.5 %) 14.0 Plt Count (130 - 400 /CUMM) 214 MPV (7.4 - 10.4 FL) 8.0 Gran % (42.2 - 75.2 %) 56.6 Lymphocytes % (20.5 - 51.1 %) 27.7 Monocytes % (1.7 - 9.3 %) 10.6 H Eosinophils % (0 - 5 %) 4.3 Basophils % (0.0 - 2.0 %) 0.8 Absolute Granulocytes (1.4 - 6.5 /CUMM) 3.5 Absolute Lymphocytes (1.2 - 3.4 /CUMM) 1.7 Absolute Monocytes (0.10 - 0.60 /CUMM) 0.7 H Absolute Eosinophils (0.0 - 0.7 /CUMM) 0.3 Absolute Basophils (0.0 - 0.2 /CUMM) 0 A/P; 61 y/o M with pmh sig for hypothyroidism, admitted with right hand cellulitis. Status post aspiration dorsal 3rd mcp region with plastic surgery, negative for purulence according to their note. Cultures are growing staph aureus MSSA. Discussed with Dr. Robles from infectious disease. Transition to oral Keflex today. Patient's family very concerned about him going home and taking care of his wound. Patient will need to have a good plan for his wound care and home visiting nurses. We'll switch him to oral antibiotics today and monitor him another 24 hours. If continued to improve then likely discharge home tomorrow with the specific instructions for wound care at home visiting nurses. Continue the rest of the management and patient on Lovenox for DVT prophylaxis.
[2017-09-19 13:32] VITALS: BP 112/62
[2017-09-19 14:31] VITALS: BP 116/64
[2017-09-19 21:56] VITALS: BP 110/60
--- NOTE | 2017-09-20 06:43 | PN- Housestaff ---
Keyonna BADILLO,Emilie 09/20/17 0643: Subjective Follow-up For: left hand cellulitis Subjective: And seen and examined. He is in good spirits and talkative. The patient states that his hand does feel better, less pain than previously. The patient has no other complaints, no fever, no chills. Review of Systems Constitutional: Reports: no symptoms. EENTM: Reports: no symptoms. Cardiovascular: Reports: no symptoms. Respiratory: Reports: no symptoms. Gastrointestinal: Reports: no symptoms. Genitourinary: Reports: no symptoms. Musculoskeletal: Reports: no symptoms. Skin: Reports: lesions. Neurological/Psychological: Reports: no symptoms. Hematologic/Endocrine: Reports: no symptoms. Immunologic/Allergic: Reports: no symptoms. Objective Last 24 Hrs of Vital Signs/I&O Vital Signs Date Time Temp Pulse Resp B/P B/P Pulse O2 O2 Flow FiO2 Mean Ox Delivery Rate 09/20 0652 98.1 82 16 108/62 95 Room Air 09/19 2156 98.0 85 20 110/60 97 09/19 1431 97.8 69 20 116/64 96 09/19 1332 112/62 Intake & Output 09/20 1600 09/20 0800 09/20 0000 Intake Total 360 360 Output Total Balance 360 360 Intake, Oral 360 360 Physical Exam General Appearance: Alert, Oriented X3, Cooperative, No Acute Distress Skin: No Rashes, No Breakdown, right hand wound when palpated expresses serosanguinous slightly purulent discharge. wound noted to be much better than previous. Skin Temp/Moisture Exam: Warm/Dry Sepsis Skin Exam (color): Normal for Ethnicity HEENT: Atraumatic, EOMI, Mucous Membr. moist/pink Neck: Supple, No JVD Cardiovascular: Regular Rate, Normal S1, Normal S2, No Murmurs Lungs: Clear to Auscultation, Normal Air Movement Abdomen: Normal Bowel Sounds, Soft, No Tenderness Neurological: Normal Speech Extremities: No Clubbing, No Cyanosis, No Edema, Normal Pulses, No Tenderness/ Swelling Vascular: Normal Pulses, Pulses Symmetrical Sepsis Peripheral Pulse Location: Radial Sepsis Peripheral Pulse Exam: Normal Current Medications: Current Medications Sig/Alexandre Start time Last Medication Dose Route Stop Time Status Admin Bacitracin 1 NORMA BID PRN 09/17 1515 AC 09/19 TOP 2240 Cephalexin 500 MG Q6 09/19 1201 AC 09/20 PO 0615 Cholecalciferol 1,000 IU DAILY 09/18 0900 AC 09/20 PO 0811 Enoxaparin Sodium 40 MG DAILY 09/18 1502 AC 09/20 SC 0811 Levothyroxine Sodium 0.1 MG DAILY AC 09/18 0700 AC 09/20 PO 0615 Oxycodone/ 1 TAB Q6P PRN 09/17 1230 AC Acetaminophen PO Vancomycin HCl 1,000 MG DAILY 09/18 0900 DC 09/19 Sodium Chloride 250 ML IV 1057 Last 24 Hrs of Lab/Ihsan Results Last 24 Hrs of Labs/Mics: Laboratory Tests 09/19/17 0910: CBC w Diff NO MAN DIFF REQ, RBC 4.52 L, MCV 94.0, MCH 32.0 H, MCHC 34.0, RDW 14.0, MPV 8.0, Gran % 56.6, Lymphocytes % 27.7, Monocytes % 10.6 H, Eosinophils % 4.3, Basophils % 0.8, Absolute Granulocytes 3.5, Absolute Lymphocytes 1.7, Absolute Monocytes 0.7 H, Absolute Eosinophils 0.3, Absolute Basophils 0 Assessment/Plan Assessment: Mr Rodríguez is a pleasant 61 year old gentleman with a past medical history of hypothyroidism who presented to the emergency department on 09/17/2017 complaining of a right hand injury. In the emergency department blood cultures 2 were drawn and the patient was given IV vancomycin 1 g. An x-ray of the hand was also performed. His injury is concerning especially given its location. Owing to the presence of purulent material will need to cover for MRSA.Given the fact that the injury may have happened as a result of a workplace injury would be prudent to rule out hepatitis and HIV. An MRI was done on 09/17/2017 showed no evidence of osteomyelitis however did suggest a potential superficial abscess on the subcutaneous tissue of the palm. #Cellulitis of the right upper extremity #History of Hypothyroidism Continue on the Gen. medical service. Vancomycin has been switched to Keflex 500 mg every 6. He'll be discharged today on that medication for 7 more days for a total of 10 days of treatment. Cultures have grown MSSA ID and plastics on board. Plastic surgery will follow up with the patient and has suggested soap and water on the wound one to 2 times a day with bacitracin and gauze covering. Surgery would also like occupational therapy to see the patient for splinting of the hand to avoid flexion contracture. Discharged after occupational therapy. In control with 500 mg Tylenol 2 tabs every 6 hours Continue levothyroxine Smoking cessation counseling. Regular diet. DVT prophylaxis with Lovenox. Patient is a full code. Problem List: 1. Cellulitis and abscess of hand Pain Ratin Pain Location: na Pain Goal: Remain pain free Pain Plan: na Tomorrow's Labs & Rationales: melanie Silveira MD,Deann 09/20/17 1057: Attending MD Review Statement Attending Statement Attending MD Statement: examined this patient, discuss w/resident/PA/ENGINEER OF SYSTEM DEVELOPMENT, agreed w/resident/PA/ENGINEER OF SYSTEM DEVELOPMENT, reviewed EMR data (avail), discussed with nursing, discussed with case mgmt, reviewed images, amended to note Attending Assessment/Plan: Patient seen and examined, denies any complaints. Overall doing much better. He denies any pain in his right hand. He remains afebrile. Vital Signs Date Time Temp Pulse Resp B/P B/P Pulse O2 O2 Flow FiO2 Mean Ox Delivery Rate 09/20 0652 98.1 82 16 108/62 95 Room Air 09/19 2156 98.0 85 20 110/60 97 / 1431 97.8 69 20 116/64 96 09/19 1332 112/62 on exam; aox3, nad. cv; s1,s2, rrr resp; clear abd; soft, nt, bs+ ext; no edema skin: right swelling swelling and erythema improved, open I&D drained some serosnaguinous material when pressed on it. no labs today. A/P: 61 y/o M with pmh sig for hypothyroidism, admitted with right hand cellulitis. Status post aspiration dorsal 3rd mcp region with plastic surgery, negative for purulence according to their note. Cultures are growing staph aureus MSSA. Patient was switched to oral Keflex but infectious disease recommendations. Overall hand is improving. Patient will be seen by occupational therapist as recommended by plastic surgery. Afterwards he will be discharged home with home services including wound care and OT. We put in one care instructions on his paperwork. He will be continued on Keflex for another week. He should follow-up with his primary care doctor as an outpatient as well as plastic surgery as an outpatient.
[2017-09-20 06:52] VITALS: BP 108/62
--- NOTE | 2017-09-20 08:24 | Patient Discharge Instructions ---
Discharge Instructions General Discharge Information You were seen/treated for: RIGHT HAND CELLULITIS Other wound care: Twice a day hand washing with soap and water. Cover wound with nonstick gauze pad and a Band-Aid. If more drainage than can be collected by Band-Aid or nonstick gauze pad can add additional dry sterile dressings on top of the nonstick. Minimize bulkiness of dressings to promote use of the hands. May shower without dressings. Special Instructions: 1. please follow up with Dr. Garcia plastic surgeon in two weeks. 2. please follow up with PCP in one week 3. please follow wound care instructions 4. please take full dose of antibiotic 5. Light duty and no lifting pushing or pulling greater than 3 pounds until reevaluation. Diet Continue normal diet: Yes Activity Full Activity/No Limits: Yes Acute Coronary Syndrome Inclusion Criteria At DC or during hospital stay patient has or had the following: ACS DIAGNOSIS No Discharge Core Measures Meds if any: Prescribed or Continued at Discharge Meds if any: NOT Prescribed or Continued at Discharge Congestive Heart Failure Inclusion Criteria At DC or during hospital stay patient has or had the following: CHF DIAGNOSIS No Discharge Core Measures Meds if any: Prescribed or Continued at Discharge Meds if any: NOT Prescribed or Continued at Discharge Cerebrovascular accident Inclusion Criteria At DC or during hospital stay patient has or had the following: CVA/TIA Diagnosis No Discharge Core Measures Meds if any: Prescribed or Continued at Discharge Meds if any: NOT Prescribed or Continued at Discharge Venous thromboembolism Inclusion Criteria VTE Diagnosis No VTE Type NONE VTE Confirmed by (Test) NONE Discharge Core Measures - Per Current guidelines, there needs to be overlap - treatment for the first 5 days of Warfarin therapy. - If discharged on Warfarin prior to 5 days of - overlap therapy, the patient will need to be - assessed for post discharge needs including - *Post discharge parental anticoagulation - *Warfarin and/or parental anticoagulation education - *Follow up date to check INR post discharge At least 5 days overlap therapy as Inpatient No Meds if any: Prescribed or Continued at Discharge Note: Overlap Therapy is Warfarin and Anticoagulant Meds if any: NOT Prescribed or Continued at Discharge
[2017-09-20] MEDS ORDERED: BACITRACIN ZIN120 GM TOP (10:05)
[2017-09-20] MEDS ORDERED: CEPHALEXIN500 M3 PO (10:05)
[2017-09-20] MEDS ORDERED: TYLENOL EXTRA500 M2 PO (10:22)
--- NOTE | 2017-09-20 12:29 | PN- Infect Dx ---
Subjective Subjective: Afebrile. He feels well with minimal pain in the right hand. Objective Last 24 Hrs of Vital Signs/I&O Vital Signs Date Time Temp Pulse Resp B/P B/P Pulse O2 O2 Flow FiO2 Mean Ox Delivery Rate 09/20 0652 98.1 82 16 108/62 95 Room Air 09/19 2156 98.0 85 20 110/60 97 09/19 1431 97.8 69 20 116/64 96 09/19 1332 112/62 Intake & Output 09/20 1600 09/20 0800 09/20 0000 Intake Total 360 360 Output Total Balance 360 360 Intake, Oral 360 360 Patient 118 lb Weight Physical Exam Other Physical Findings: He appears comfortable in no acute distress Extremities decreased swelling of the right hand, particularly over the dorsum; wound in the right palm, with no surrounding erythema or tenderness and decreased edema, but with expressible purulent drainage Results Last 24 Hours of Lab Results: Laboratory Tests 09/19 0910 Hematology CBC w Diff NO MAN DIFF REQ WBC (4.8 - 10.8 /CUMM) 6.3 RBC (4.70 - 6.10 /CUMM) 4.52 L Hgb (14.0 - 18.0 G/DL) 14.5 Hct (42 - 52 %) 42.5 MCV (80.0 - 94.0 FL) 94.0 MCH (27.0 - 31.0 PG) 32.0 H MCHC (33.0 - 37.0 G/DL) 34.0 RDW (11.5 - 14.5 %) 14.0 Plt Count (130 - 400 /CUMM) 214 MPV (7.4 - 10.4 FL) 8.0 Gran % (42.2 - 75.2 %) 56.6 Lymphocytes % (20.5 - 51.1 %) 27.7 Monocytes % (1.7 - 9.3 %) 10.6 H Eosinophils % (0 - 5 %) 4.3 Basophils % (0.0 - 2.0 %) 0.8 Absolute Granulocytes (1.4 - 6.5 /CUMM) 3.5 Absolute Lymphocytes (1.2 - 3.4 /CUMM) 1.7 Absolute Monocytes (0.10 - 0.60 /CUMM) 0.7 H Absolute Eosinophils (0.0 - 0.7 /CUMM) 0.3 Absolute Basophils (0.0 - 0.2 /CUMM) 0 Last 24 Hours of Ihsan Results: Right hand drainage September 17 positive for Staph aureus sensitive to Oxacillin Blood cultures 2 September 17 negative Assessment/Plan ID Impression: Overall improved, with his temperatures remain normal and white blood cell count also normal, now on Keflex, Day 3 of treatment for a cellulitis of the right hand following presumed trauma, with the culture from the I&D in the ER positive for methicillin sensitive Staph aureus. He still has expressible purulent drainage from the wound and would benefit from Plastics follow-up. Suggestion: 1. Plastic surgery follow-up regarding need for any further drainage 2. Can continue Keflex, pending above, to plan on at least an additional week of treatment
[2017-09-20 14:54] VITALS: BP 120/80
--- NOTE | 2017-09-20 17:17 | PN- Plastic Surgery ---
Subjective Subjective: Physician reports continued purulent drainage from Palm status post incision and drainage in emergency room by emergency room staff Review of Systems: All the systems negative complaints of pain Objective Vital Signs and I&Os Vital Signs Date Time Temp Pulse Resp B/P B/P Pulse O2 O2 Flow FiO2 Mean Ox Delivery Rate 09/20 1454 97.6 80 22 120/80 96 09/20 0652 98.1 82 16 108/62 95 Room Air 09/19 2156 98.0 85 20 110/60 97 Intake & Output 09/20 1600 09/20 0809/20 0000 09/19 1600 09/19 0809/19 0000 Intake Total 360 360 350 330 Output Total Balance 360 360 350 330 Intake, IV 10 Intake, Oral 360 360 350 320 Number 1 Bowel Movements Patient 118 lb Weight Assessment/Plan Assessment/Plan Right hand infectionimproving/resolving Some purulent contents being held back by skin opposition. The area was anesthetized and a skin defect was created and the wound explored. No significant purulence, epithelialization was carried out out of the surrounding skin. Wound care should be as follows: Twice a day hand washing with soap and water. Cover wound with nonstick gauze pad and a Band-Aid. If more drainage than can be collected by Band-Aid or nonstick gauze pad can add additional dry sterile dressings on top of the nonstick. Minimize bulkiness of dressings to promote use of the hands. May shower without dressings. Follow-up office 2 weeks. Light duty and no lifting pushing or pulling greater than 3 pounds until reevaluation.
[2017-09-20 21:51] VITALS: BP 120/70
--- NOTE | 2017-09-21 06:35 | PN- Housestaff ---
Keyonna BADILLO,Emilie 09/21/17 0635: Subjective Follow-up For: Right hand cellulitis Subjective: Patient seen and examined. He denies any pain in his hand. He does note some tightness when he tries to make a fist. The patient was supposed to leave yesterday but we deferred discharge so that plastic surgeon could see the patient. He gave some new suggestions for wound care. The patient's will be able to come today at 1:30 to pick him up. Patient has no complaints otherwise and in good spirits. Review of Systems Constitutional: Reports: no symptoms. Cardiovascular: Reports: no symptoms. Respiratory: Reports: no symptoms. Gastrointestinal: Reports: no symptoms. Musculoskeletal: Reports: no symptoms. Skin: Reports: lesions. Objective Last 24 Hrs of Vital Signs/I&O Vital Signs Date Time Temp Pulse Resp B/P B/P Pulse O2 O2 Flow FiO2 Mean Ox Delivery Rate 09/21 0652 97.6 82 16 120/70 98 Room Air 09/20 2151 98.5 90 18 120/70 97 09/20 1454 97.6 80 22 120/80 96 Intake & Output 09/21 1600 09/21 0800 09/21 0000 Intake Total 200 Output Total Balance 200 Intake, Oral 200 Physical Exam General Appearance: Alert, Cooperative, No Acute Distress Skin: patient has right hand lesion in Center [place], clean and dressed with bacitracin and gauze. Skin Temp/Moisture Exam: Warm/Dry Sepsis Skin Exam (color): Normal for Ethnicity Cardiovascular: Regular Rate, Normal S1, Normal S2, No Murmurs Lungs: Clear to Auscultation, Normal Air Movement Abdomen: Normal Bowel Sounds, Soft, No Tenderness Extremities: No Clubbing, No Cyanosis, No Edema, Normal Pulses, No Tenderness/ Swelling Vascular: Normal Pulses Current Medications: Current Medications Sig/Alexandre Start time Last Medication Dose Route Stop Time Status Admin Bacitracin 1 NORMA BID PRN 09/17 1515 AC 09/20 [facility] 0850 Cephalexin 500 MG Q6 09/19 1201 AC 09/21 PO 0613 Cholecalciferol 1,000 IU DAILY 09/18 0900 AC 09/20 PO 0811 Enoxaparin Sodium 40 MG DAILY 09/18 1502 AC 09/20 SC 0811 Levothyroxine Sodium 0.1 MG DAILY AC 09/18 0700 AC 09/21 PO 0613 Oxycodone/ 1 TAB Q6P PRN 09/17 1230 AC Acetaminophen PO Patient Medication 1 ED ONE ONE 09/20 1100 DC Teaching ED 09/20 1101 Assessment/Plan Assessment: Mr Rodríguez is a pleasant 61 year old gentleman with a past medical history of hypothyroidism who presented to the emergency department on 09/17/2017 complaining of a right hand injury. In the emergency department blood cultures 2 were drawn and the patient was given IV vancomycin 1 g. An x-ray of the hand was also performed. His injury is concerning especially given its location. Owing to the presence of purulent material will need to cover for MRSA.Given the fact that the injury may have happened as a result of a workplace injury would be prudent to rule out hepatitis and HIV. An MRI was done on 09/17/2017 showed no evidence of osteomyelitis however did suggest a potential superficial abscess on the subcutaneous tissue of the palm. #Cellulitis of the right upper extremity #History of Hypothyroidism Continue on the Gen. medical service. Vancomycin has been switched to Keflex 500 mg every 6. He'll be discharged today on that medication for 6 more days for a total of 10 days of treatment. Cultures have grown MSSA ID and plastics on board. Plastic surgery suggested twice a day hand washing with soap and water. Cover wound with nonstick gauze pad and a Band-Aid. If more drainage than can be collected by Band-Aid or nonstick gauze pad can add additional dry sterile dressings on top of the nonstick. Minimize bulkiness of dressings to promote use of the hands. May shower without dressings. Follow-up office 2 weeks. Light duty and no lifting pushing or pulling greater than 3 pounds until reevaluation. Pain control with 500 mg Tylenol 2 tabs every 6 hours Continue levothyroxine Smoking cessation counseling. Regular diet. DVT prophylaxis with Lovenox. Patient is a full code. Problem List: 1. Cellulitis and abscess of hand Pain Ratin Pain Location: na Pain Goal: Remain pain free Pain Plan: na Tomorrow's Labs & Rationales: melanie Silveira MD,Deann 09/21/17 1201: Attending Review Statement Attending Statement Attending Statement: examined this patient, discuss w/resident/PA/SANITATION LABORER, agreed w/resident/PA/SANITATION LABORER, reviewed EMR data (avail), discussed with nursing, discussed with case mgmt, reviewed images, amended to note Attending Assessment/Plan: Patient seen and examined, denies any complaints. He was seen by plastic surgery yesterday. He remains on oral antibiotics. His hand is overall improving. Hand still has an open wound. Discussed with Dr. Tejeda, plastics follow-up this afternoon and afterwards patient will be discharged home on oral antibiotics. He will have home visiting nurses and wound care arranged for home. He will follow with plastic surgery in one week.
[2017-09-21 06:52] VITALS: BP 120/70
[2017-09-21] MEDS ORDERED: TYLENOL EXTRA500 M2 PO ×2 (10:42→11:11)
[2017-09-21] MEDS ORDERED: CEPHALEXIN500 M3 PO ×2 (10:42→11:11)
[2017-09-21] MEDS ORDERED: BACITRACIN ZIN120 GM TOP (11:11)
--- NOTE | 2017-09-21 11:26 | PN- Infect Dx ---
Subjective Subjective: Afebrile without complaints. His right hand feels improved, with decreased pain. Objective Last 24 Hrs of Vital Signs/I&O Vital Signs Date Time Temp Pulse Resp B/P B/P Pulse O2 O2 Flow FiO2 Mean Ox Delivery Rate 09/21 0652 97.6 82 16 120/70 98 Room Air 09/20 2151 98.5 90 18 120/70 97 09/20 1454 97.6 80 22 120/80 96 Intake & Output 09/21 1600 09/21 0800 09/21 0000 Intake Total 200 Output Total Balance 200 Intake, Oral 200 Physical Exam Other Physical Findings: He appears comfortable in no acute distress Extremities decreased edema of the right hand; persistent purulent drainage versus fibrinous exudate still expressible from the volar aspect of his hand, with no erythema or tenderness on palpation Results Last 24 Hours of Lab Results: No labs from today Last 24 Hours of Ihsan Results: Blood cultures 2 September 17 remain negative Assessment/Plan ID Impression: Overall improved, with his temperatures remaining normal and his last white blood cell count also normal, on Keflex, Day 4 of treatment for a purulent cellulitis/abscess of the right hand secondary to MSSA following presumed trauma , status post I&D in the ER and further exploration and epithelialization of the wound at the bedside yesterday. Suggestion: 1. Further management of his wound per Plastic surgery 2. Continue Keflex for 1 more week
--- NOTE | 2017-09-21 12:26 | PN- Plastic Surgery ---
Subjective Subjective: feels well Review of Systems: all other systems neg Objective Vital Signs and I&Os Vital Signs Date Time Temp Pulse Resp B/P B/P Pulse O2 O2 Flow FiO2 Mean Ox Delivery Rate 09/21 0652 97.6 82 16 120/70 98 Room Air 09/20 2151 98.5 90 18 120/70 97 09/20 1454 97.6 80 22 120/80 96 Intake & Output 09/21 1600 09/21 0809/21 0000 09/20 1600 09/20 0000 Intake Total 200 360 360 Output Total Balance 200 360 360 Intake, Oral 200 360 360 Patient 118 lb Weight Physical Exam: no pus, some granulation. see previous note for vna instructions. f/u wednesday office [address], Assessment/Plan Assessment/Plan resolving hand infection.
== END 2017-09-21 14:12 | disposition home health service (06) | DRG 603 ==
LOC: DELPENDDIS → ERH 08:07 → ERHI 11:03 → 2NA 11:03 → ENRESERV 11:25 → ENTRNSPT 11:48 → EDTRNSPTSTS 12:03 → EDTRNSPT 12:03 → 2NA 12:26 → CMPTRNSPT 12:30 → 2NA 20:13 → ENPENDDIS 09-20 11:00 → 2NA 09-21 14:12
PROVIDERS: Physician Assistant Medical; Student in an Organized Health Care Education/Training Program
DX: L03.113 Cellulitis of right upper limb (principal); E03.9 Hypothyroidism, unspecified; S61.411A Laceration without foreign body of right hand, initial encounter; B95.62 Methicillin resistant Staphylococcus aureus infection as the cause of diseases classified elsewhere
CPT/HCPCS: 2NAP; 75643; 36415; 36592; 73120-RT; 82436; 86803; 87040; 87070; 87147; 87389; A9579; J0131; J1650; J2001; J3370; J7040